=== PATIENT | male | born 1970 | race Caucasian/White ===

== ENCOUNTER 2021-08-15 13:45 | Outpatient (CLI) | payer OTHER | END 2021-08-15 13:56 | disposition home or self-care (01) | LOC: RAD 13:45 | PROVIDERS: ATTEND Physical Medicine & Rehabilitation | DX: M25.561 Pain in right knee (principal) ==

== ENCOUNTER 2023-08-11 15:24 | Emergency (ER) | payer OTHER ==
[~2023-08-11] VITALS: Ht 193 cm; Wt 104.3 kg
[2023-08-11] MEDS ORDERED: ORPHENADRINE CITRATE 30 MG/ML AMPUL IM ONE (19:30)
[2023-08-11] MEDS ORDERED: KETOROLAC TROMETHAMINE 60 MG VIAL IM ONE (19:30)
[2023-08-11] MEDS ORDERED: DEXAMETHASONE SODIUM PHOSPHATE 4 MG/ML VIAL IM ONE (19:30)
[2023-08-11] MEDS ORDERED: NORFLEX100MG PO (21:10)
[2023-08-11] MEDS ORDERED: DICLOFENAC SODI75 MG PO (21:10)
== END 2023-08-11 21:24 ==
LOC: ER 15:25
DX: M54.50 Low back pain, unspecified (principal); G47.30 Sleep apnea, unspecified